=== PATIENT | female | born 1995 | race Two or more races ===

== ENCOUNTER 2022-12-18 09:00 | Emergency (ER) | payer SELFPAY ==
[~2022-12-18] VITALS: Ht 175.3 cm; Wt 60.1 kg
[2022-12-18 09:57] VITALS: BP 114/81; PULSE 101; RESP 18; TEMP 98.1; O2SAT 100
== END 2022-12-18 10:26 | disposition home or self-care (01) ==
LOC: ER 09:00
DX: S93.601A Unspecified sprain of right foot, initial encounter (principal); W18.39XA Other fall on same level, initial encounter; Y93.89 Activity, other specified; Y92.89 Other specified places as the place of occurrence of the external cause; Y99.8 Other external cause status
CPT/HCPCS: 29515; 73630